=== PATIENT | female | born 1995 | race Caucasian/White ===

== ENCOUNTER 2017-11-15 03:48 | Emergency (ER) | payer OTHER ==
[~2017-11-15] VITALS: Ht 165.1 cm; Wt 88.9 kg
[2017-11-15] MEDS ORDERED: TRINESSA1 EACH (03:58)
[2017-11-15] MEDS ORDERED: SPIRONOLACTONE50 MG (03:59)
[2017-11-15 04:48] LABS: ABSOLUTE BASOPHILS 0.1 thou/uL (0.0-0.2); ABSOLUTE EOSINOPHILS 0.1 thou/uL (0.0-0.7); ABSOLUTE LYMPHOCYTES 4.7 thou/uL (0.8-5.3); ABSOLUTE MONOCYTES 0.9 thou/uL (0.0-1.2); ABSOLUTE NEUTROPHILS 7.6 thou/uL (1.6-8.1); EOSINOPHILS 0.4 %; HEMATOCRIT 41.1 % (37.0-47.0); HEMOGLOBIN 13.7 gm/dL (12.0-15.0); LYMPHOCYTES 35.5 %; MCH 29.6 pg (26.0-34.0); MCHC 33.4 g/dL (28.0-37.0); MCV 88.6 fL (80.0-100.0); MONOCYTES 6.7 %; MPV 7.6 fl. (7.2-11.1); NUCLEATED RBCS 0 /100WBC; PLATELET COUNT* 287 thou/uL (150-400); POLYS 56.4 %; RBC 4.64 mil/uL (4.20-5.00); RDW-CV 12.4 % (10.5-14.5); WBC 13.4 thou/uL (4.0-11.0)
[2017-11-15 05:05] LABS: CALCIUM 9.1 mg/dL (8.5-10.1); CREATININE 0.8 mg/dL (0.6-1.3); POTASSIUM 3.7 mmol/L (3.5-5.1)
[2017-11-15 05:08] LABS: ALBUMIN 3.9 g/dL (3.4-5.0); TOTAL BILIRUBIN 0.3 mg/dL (<0.1-1.0); TOTAL PROTEIN 7.9 g/dL (6.4-8.2)
[2017-11-15 05:22] LABS: URINE BILIRUBIN NEGATIVE (Negative); URINE BLOOD NEGATIVE (Negative); URINE CLARITY CLEAR; URINE COLOR YELLOW; URINE GLUCOSE-RANDOM NEGATIVE (Negative); URINE KETONES NEGATIVE (Negative); URINE LEUKOCYTES-REFLEX NEGATIVE (Negative); URINE NITRITE-REFLEX NEGATIVE (Negative); URINE PROTEIN NEGATIVE (Negative); URINE SPECIFIC GRAVITY >= 1.030 (1.005-1.030); URINE UROBILINOGEN 0.2 E.U./dl (0.2-1.0)
[2017-11-15] MEDS ORDERED: HYDROCODONE-AP1 EAC6 PO (06:29)
[2017-11-15] MEDS ORDERED: CARAFATE 1 GM TA1 GM PO (06:29)
[2017-11-15] MEDS ORDERED: AMOXICILLIN 50500 M1 PO (06:29)
[2017-11-15] MEDS ORDERED: ZOFRAN ODT4 MG PO (06:29)
[2017-11-15] MEDS ORDERED: PRILOSEC OTC20 MG PO (06:29)
[2017-11-15 06:30] VITALS: BP 140/80
== END 2017-11-15 06:30 | disposition home or self-care (01) ==
LOC: M.ERS 03:48
PROVIDERS: Emergency Medicine
DX: K29.80 Duodenitis without bleeding (principal)

== ENCOUNTER 2018-01-05 20:34 | Emergency (ER) | payer OTHER ==
[~2018-01-05] VITALS: Ht 165.1 cm; Wt 87.5 kg
[~2018-01-05 20:34] MED LIST: AMOXICILLIN 50500 M1 PO; CARAFATE 1 GM TA1 GM PO; HYDROCODONE-AP1 EAC6 PO; PRILOSEC OTC20 MG PO; SPIRONOLACTONE50 MG; TRINESSA1 EACH; ZOFRAN ODT4 MG PO
[2018-01-05] MEDS ORDERED: TRAMADOL 50 MG50 MG PO (21:18)
[2018-01-05 21:45] VITALS: BP 107/61
== END 2018-01-05 21:50 | disposition home or self-care (01) ==
LOC: M.ERS 20:34
DX: M79.672 Pain in left foot (principal)

== ENCOUNTER 2019-09-13 17:36 | Emergency (ER) | payer BC ==
[~2019-09-13] VITALS: Ht 165.1 cm; Wt 86.2 kg
[~2019-09-13 17:36] MED LIST changes: +TRAMADOL 50 MG50 MG PO
[2019-09-13] MEDS ORDERED: BIRTH CONTROL (18:06)
[2019-09-13] MEDS ORDERED: OMEPRAZOLE20 M1 PO (18:06)
[2019-09-13] MEDS ORDERED: MUPIROCIN15 GM TOP (19:25)
[2019-09-13] MEDS ORDERED: DOXYCYCLINE 10100 MG PO (19:25)
[2019-09-13 19:36] VITALS: BP 148/72
== END 2019-09-13 19:36 | disposition home or self-care (01) ==
LOC: M.ERS 17:36
DX: L03.113 Cellulitis of right upper limb (principal)

== ENCOUNTER 2020-02-16 23:45 | Emergency (ER) | payer BC, OTHER ==
[~2020-02-16] VITALS: Ht 165.1 cm; Wt 93.0 kg
[~2020-02-16 23:45] MED LIST changes: +BIRTH CONTROL; +DOXYCYCLINE 10100 MG PO; +MUPIROCIN15 GM TOP; +OMEPRAZOLE20 M1 PO
[2020-02-17 00:58] LABS: URINE BILIRUBIN NEGATIVE (Negative); URINE BLOOD NEGATIVE (Negative); URINE CLARITY CLEAR; URINE COLOR YELLOW; URINE GLUCOSE-RANDOM NEGATIVE (Negative); URINE KETONES NEGATIVE (Negative); URINE LEUKOCYTES-REFLEX NEGATIVE (Negative); URINE NITRITE-REFLEX NEGATIVE (Negative); URINE PROTEIN NEGATIVE (Negative); URINE SPECIFIC GRAVITY 1.025 (1.005-1.030); URINE UROBILINOGEN 0.2 E.U./dl (0.2-1.0)
[2020-02-17 01:12] LABS: ABSOLUTE BASOPHILS 0.1 thou/uL (0.0-0.2); ABSOLUTE LYMPHOCYTES 2.8 thou/uL (0.8-5.3); ABSOLUTE MONOCYTES 0.5 thou/uL (0.0-1.2); ABSOLUTE NEUTROPHILS 6.4 thou/uL (1.6-8.1); BASOPHILS 0.9 %; EOSINOPHILS 0.4 %; HEMATOCRIT 42.3 % (37.0-47.0); HEMOGLOBIN 14.8 gm/dL (12.0-15.0); LYMPHOCYTES 28.2 %; MCH 30.7 pg (26.0-34.0); MCHC 34.9 g/dL (28.0-37.0); MCV 87.9 fL (80.0-100.0); MONOCYTES 5.5 %; MPV 7.6 fl. (7.2-11.1); NUCLEATED RBCS 0 /100WBC; PLATELET COUNT* 273 thou/uL (150-400); RBC 4.81 mil/uL (4.20-5.00); RDW-CV 12.7 % (10.5-14.5); WBC 9.9 thou/uL (4.0-11.0)
[2020-02-17 01:16] LABS: CALCIUM 8.9 mg/dL (8.5-10.1); CREATININE 0.9 mg/dL (0.6-1.3); POTASSIUM 3.7 mmol/L (3.5-5.1)
[2020-02-17 01:20] LABS: ALBUMIN 3.6 g/dL (3.4-5.0); TOTAL BILIRUBIN 0.2 mg/dL (<0.1-1.0)
[2020-02-17] MEDS ORDERED: ZOFRAN ODT4 MG PO (02:27)
[2020-02-17] MEDS ORDERED: TYLENOL WITH CO1 TA1 PO (02:27)
[2020-02-17] MEDS ORDERED: CARAFATE 1 GM TA1 GM PO (02:27)
[2020-02-17 02:50] VITALS: BP 126/85
== END 2020-02-17 02:50 | disposition home or self-care (01) ==
LOC: M.ERS 23:45
PROVIDERS: Emergency Medicine
DX: K21.9 Gastro-esophageal reflux disease without esophagitis (principal); R51 Headache; R20.0 Anesthesia of skin; M79.602 Pain in left arm; Z88.1 Allergy status to other antibiotic agents

== ENCOUNTER 2020-04-24 22:25 | Emergency (ER) | payer BC, OTHER ==
[~2020-04-24] VITALS: Ht 165.1 cm; Wt 86.2 kg
[~2020-04-24 22:25] MED LIST changes: +TYLENOL WITH CO1 TA1 PO
[2020-04-24] MEDS ORDERED: PROTONIX 20 MG20 MG PO (22:36)
[2020-04-24 23:23] LABS: URINE BILIRUBIN NEGATIVE (Negative); URINE BLOOD 2+ (Negative); URINE CLARITY CLEAR; URINE COLOR YELLOW; URINE GLUCOSE-RANDOM NEGATIVE (Negative); URINE KETONES NEGATIVE (Negative); URINE LEUKOCYTES-REFLEX NEGATIVE (Negative); URINE NITRITE-REFLEX NEGATIVE (Negative); URINE PROTEIN NEGATIVE (Negative); URINE SPECIFIC GRAVITY 1.015 (1.005-1.030); URINE UROBILINOGEN 0.2 E.U./dl (0.2-1.0)
[2020-04-24 23:25] LABS: ABSOLUTE MONOCYTES 0.7 thou/uL (0.0-1.2); ABSOLUTE NEUTROPHILS 4.7 thou/uL (1.6-8.1); BASOPHILS 0.3 %; EOSINOPHILS 0.3 %; HEMATOCRIT 39.7 % (37.0-47.0); HEMOGLOBIN 13.7 gm/dL (12.0-15.0); LYMPHOCYTES 35.7 %; MCH 30.6 pg (26.0-34.0); MCHC 34.6 g/dL (28.0-37.0); MCV 88.5 fL (80.0-100.0); MONOCYTES 7.8 %; MPV 7.9 fl. (7.2-11.1); NUCLEATED RBCS 0 /100WBC; PLATELET COUNT* 336 thou/uL (150-400); POLYS 55.9 %; RBC 4.49 mil/uL (4.20-5.00); RDW-CV 12.8 % (10.5-14.5); WBC 8.5 thou/uL (4.0-11.0)
[2020-04-24 23:29] LABS: BACTERIA-REFLEX >30 Many /HPF (None Seen); SQUAMOUS 0-3 Few /LPF (0-3); TRANSITIONAL EPITHEL CELL 0-3 Few /LPF (None Seen); URINE WBC-REFLEX None Seen /HPF (0-5)
[2020-04-24 23:29] LABS: CALCIUM 8.7 mg/dL (8.5-10.1); POTASSIUM 3.6 mmol/L (3.5-5.1)
[2020-04-24 23:30] LABS: CASTS None Seen /LPF (None Seen); CRYSTALS None Seen /LPF (None Seen); MUCUS 0-3 Light strn/LPF (None Seen)
[2020-04-24 23:34] LABS: ALBUMIN 3.8 g/dL (3.4-5.0); TOTAL BILIRUBIN 0.2 mg/dL (<0.1-1.0)
[2020-04-25] MEDS ORDERED: CARAFATE 1 GM TA1 GM PO (00:19)
[2020-04-25] MEDS ORDERED: APAP W/CODEINE1 TA2 PO (00:19)
[2020-04-25 00:42] VITALS: BP 137/85
== END 2020-04-25 00:44 | disposition home or self-care (01) ==
LOC: M.ERS 22:25
PROVIDERS: Emergency Medicine
DX: K29.70 Gastritis, unspecified, without bleeding (principal); Z88.1 Allergy status to other antibiotic agents